=== PATIENT | female | born 1980 | race Caucasian/White ===

== ENCOUNTER 2016-07-02 18:17 | Emergency (ER) | payer OTHER ==
[~2016-07-02] VITALS: Ht 167.6 cm; Wt 72.1 kg
[2016-07-02 19:50] VITALS: BP 120/80
== END 2016-07-02 19:50 | disposition home or self-care (01) ==
LOC: ED 18:17
DX: J01.90 Acute sinusitis, unspecified (principal)

== ENCOUNTER 2016-08-02 00:38 | Emergency (ER) | payer OTHER ==
[2016-08-02 02:17] LABS: BASOPHIL % 0.6 % (0-2); PLATELET COUNT 247 x10^3mcL (130-400); RED CELL DISTRIBUTION WIDTH 14.5 % (11.5-14.5)
[2016-08-02 02:27] LABS: CALCIUM 8.1 mg/dL (8.5-10.1); CARBON DIOXIDE 28.3 mmol/L (21-32); CHLORIDE SERUM 107 mmol/L (98-107); CREATININE SERUM 0.9 mg/dL (0.6-1.0); GFR1 > 60 mL/min; GLUCOSE SERUM 95 mg/dL (74-106); POTASSIUM SERUM 4.3 mmol/L (3.5-5.1); SODIUM SERUM 142 mmol/L (136-145)
[2016-08-02 02:32] LABS: ALKALINE PHOSPHATASE 64 U/L (46-116); ALT/SGPT 27 U/L (14-59); AST/SGOT 19 U/L (15-37); BILIRUBIN TOTAL 0.3 mg/dL (0.20-1.00); TOTAL PROTEIN, SERUM 6.2 g/dL (6.4-8.2)
[2016-08-02 02:44] LABS: CK-MB < 0.5 ng/mL (0-3.6); CREATINE KINASE 93 U/L (26-192)
[2016-08-02 03:33] VITALS: BP 121/73
== END 2016-08-02 03:39 | disposition home or self-care (01) ==
LOC: ED 00:38
PROVIDERS: Emergency Medicine
DX: R42 Dizziness and giddiness (principal); R07.9 Chest pain, unspecified
CPT/HCPCS: Q0092